=== PATIENT | male | born 1980 | race Caucasian/White ===

== ENCOUNTER 2016-08-13 15:32 | Outpatient (CLI) | payer OTHER ==
--- NOTE | 2016-08-13 17:37 | DIAGNOSTIC IMAGING REPORT ---
PROCEDURE: MR THORACIC SPINE W/O CONT INDICATION: Mid thoracic spine pain. TECHNIQUE: Noncontrast T1, T2, and STIR sagittal images. T1 and T2 axial images. COMPARISON: None. FINDINGS: Spinal cord is normal. There is a moderate focal C5-6 disc herniation which is partially visualized on sagittal images and is associated with moderate narrowing of the cervical spinal canal in minimal flattening of the ventral spinal cord T1-2: Normal appearance. T2-3: Normal appearance. T3-4: Normal appearance. T4-5: Normal appearance. T5-6: Normal appearance. T6-7: Normal appearance. T7-8: Normal appearance. T8-9: Normal appearance. T9-10: Disc degeneration and mildly bulging disc with mild narrowing of the central canal. T10-11: Disc degeneration and minimally bulging disc. T11-12: Disc degeneration and minimally bulging disc. T12-L1: Normal appearance Neural foramen are normal. There is no evidence of acute process or fracture. Alignment is normal. IMPRESSION: 1. There is a moderate central disc herniation at C5-6 (partially visualized on sagittal images) which results in moderate narrowing of the cervical spinal canal. 2. Mild degenerative changes of the lower thoracic spine. 3. Otherwise negative MRI of the thoracic spine. No evidence of fracture and no evidence of significant canal compromise.
== END 2016-08-13 23:00 ==
LOC: MRI SRH 15:32
DX: M51.34 Other intervertebral disc degeneration, thoracic region (principal)

== ENCOUNTER 2016-09-02 15:59 | Outpatient (CLI) | payer OTHER ==
--- NOTE | 2016-09-02 17:49 | DIAGNOSTIC IMAGING REPORT ---
PROCEDURE: MR CERVICAL SPINE W/O CONT INDICATION: F/U TSPINE MRI,HERNIATION TECHNIQUE: T1, T2, and STIR sagittal sequences. T2 and GRE axial sequences. Bilateral T2 sagittal obliques. COMPARISON: Thoracic spine MRI 08/13/2016 FINDINGS: Alignment and curvature: Cervical straightening. No subluxation. Vertebral bodies: Mild degenerative anterior endplate spurring C5 and C6. Normal marrow signal. Disc spaces: Normally maintained disc heights. Spinal canal: Visible posterior fossa structures are normal. The visible spinal cord is normal signal. No central canal mass. Paraspinal soft tissues: Normal. C2-3: Normal. C3-4: Normal. C4-5: Mild facet hypertrophy. C5-6: Moderate sized broad-based left paracentral disc herniation superimposed on moderate broad-based posterior disc bulge. There is effacement of the left lateral recess, flattening of the spinal cord and mild to moderate central canal stenosis. Central canal measures approximately 8.5 mm. Uncovertebral joint hypertrophy is contributing to mild right foraminal narrowing. Mild to moderate left foraminal narrowing. C6-7: Normal C7-T1: Normal IMPRESSION: 1. Broad-based left paracentral disc herniation at C5-6 effaces the CSF and distorts the cord shape, and contributes to mild to moderate left foraminal narrowing. No visible cord edema. There could be a left C5 or more distal left- sided radiculopathy as a result. Correlate clinically. 2. Straightening of the cervical lordosis may be secondary to muscle spasm.
== END 2016-09-02 23:00 ==
LOC: MRI SRH 15:59
DX: M50.222 Other cervical disc displacement at C5-C6 level (principal); M48.02 Spinal stenosis, cervical region